=== PATIENT | female | born 1995 | race American Indian/Alaskan Native ===

== ENCOUNTER 2019-08-08 22:15 | Emergency (ER) | payer SELFPAY ==
[2019-08-08 22:19] VITALS: BP 143/82
--- NOTE | 2019-08-08 22:34 | Emergency Department Report ---
- General Chief complaint: Skin/Abscess/Foreign Body Stated complaint: BUMPS ON LEGS Time Seen by Provider: 08/08/19 22:25 Source: patient Mode of arrival: Ambulatory Limitations: No Limitations - History of Present Illness Initial comments: Patient is a 24-year-old female who presents emergency room with complaints of 2 bumps to the left lower leg that began approximately a week ago. She states that they have been increasing in size and she has noticed a small amount of drainage. She states that initially she thought they were hair bumps. She denies any drainage currently. She denies any fever, nausea, vomiting, diarrhea, chills, any other symptoms. She denies any past medical history or allergies to medications. She states her last menstrual cycle was the end of month. - Related Data Previous Rx's Medication Instructions Recorded Last Taken Type Sulfamethoxazole/Trimethoprim 1 each PO BID 7 Days #14 tablet 08/08/19 Unknown Rx [Bactrim DS TAB] Allergies Allergy/AdvReac Type Severity Reaction Status Date / Time orange Allergy Rash Verified 08/08/19 22:19 Abscess Boil HPI - HPI Chief Complaint: Skin/Abscess/Foreign Body Stated Complaint: BUMPS ON LEGS Time Seen by Provider: 08/08/19 22:25 Home Medications: Previous Rx's Medication Instructions Recorded Last Taken Type Sulfamethoxazole/Trimethoprim 1 each PO BID 7 Days #14 tablet 08/08/19 Unknown Rx [Bactrim DS TAB] Allergies/Adverse Reactions: Allergies Allergy/AdvReac Type Severity Reaction Status Date / Time orange Allergy Rash Verified 08/08/19 22:19 ED Review of Systems ROS: Stated complaint: BUMPS ON LEGS Other details as noted in HPI Comment: All other systems reviewed and negative ED Past Medical Hx - Past Medical History Previous Medical History?: No - Surgical History Past Surgical History?: No - Social History Smoking Status: Current Every Day Smoker - Medications Home Medications: Home Medications Medication Instructions Recorded Confirmed Last Taken Type Sulfamethoxazole/Trimethoprim 1 each PO BID 7 Days #14 tablet 08/08/19 Unknown Rx [Bactrim DS TAB] ED Physical Exam - General Limitations: No Limitations General appearance: alert, in no apparent distress - Head Head exam: Present: atraumatic, normocephalic - Eye Eye exam: Present: normal appearance - ENT ENT exam: Present: mucous membranes moist - Neurological Exam Neurological exam: Present: alert, oriented X3 - Psychiatric Psychiatric exam: Present: normal affect, normal mood - Skin Skin exam: Present: warm, dry, other (1 cm and 2 cm area of induration present to the left lateral lower leg, there is small around of surrouding erythema, no central fluctuance, no necrosis, no skin denuding) ED Course Vital Signs 08/08/19 22:18 Temperature 98.1 F Pulse Rate 85 Respiratory 18 Rate Blood Pressure 143/82 O2 Sat by Pulse 100 Oximetry ED Medical Decision Making - Medical Decision Making Patient is a 24-year-old female who presents emergency room with complaints of 2 bumps to the left lower leg that began approximately a week ago. She states that they have been increasing in size and she has noticed a small amount of drainage. She states that initially she thought they were hair bumps. She denies any drainage currently. She denies any fever, nausea, vomiting, diarrhea, chills, any other symptoms. She denies any past medical history or allergies to medications. She states her last menstrual cycle was the end of last month. Vitals are stable. On exam: 1 cm and 2 cm area of induration present to the left lateral lower leg, there is small around of surrouding erythema, no central fluctuance, no necrosis, no skin denuding. No drainable abscess at this time. It appears to be a mild cellulitis. Could be related to insect bite versus folliculitis. pt given prescription for bactrim. advised pt Please take medication as prescribed. Please use warm compresses 3 times a day. Please wash area with soap and water and immediately dry. May use Neosporin on the areas. Follow-up with a primary care doctor in the next 3 days for reexamination. Return to the emergency room for any new or worsening symptoms including but not limited to worsening swelling, worsening redness, fever, chills, vomiting, etc. Critical care attestation.: If time is entered above; I have spent that time in minutes in the direct care of this critically ill patient, excluding procedure time. ED Disposition Clinical Impression: Cellulitis Qualifiers: Site of cellulitis: extremity Site of cellulitis of extremity: lower extremity Laterality: left Qualified Code(s): L03.116 - Cellulitis of left lower limb Disposition: TO HOME OR SELFCARE Is pt being admited?: No Does the pt Need Aspirin: No Condition: Stable Instructions: Cellulitis (ED) Additional Instructions: Please take medication as prescribed. Please use warm compresses 3 times a day. Please wash area with soap and water and immediately dry. May use Neosporin on the areas. Follow-up with a primary care doctor in the next 3 days for reexamination. Return to the emergency room for any new or worsening symptoms including but not limited to worsening swelling, worsening redness, fever, chills, vomiting, etc. Prescriptions: Sulfamethoxazole/Trimethoprim [Bactrim DS TAB] 1 each PO BID 7 Days #14 tablet Referrals: SARAH CROW MD [Staff Physician] - 2-3 Days [facility] [Provider Group] - 2-3 Days [facility] [Outside] - 2-3 Days [facility] [Outside] - 2-3 Days Time of Disposition: 22:33 Print Language: YORUBA
== END 2019-08-08 22:42 | disposition home or self-care (01) ==
LOC: ED 22:15
DX: L03.116 Cellulitis of left lower limb (principal); F17.200 Nicotine dependence, unspecified, uncomplicated; Z79.899 Other long term (current) drug therapy; Z91.018 Allergy to other foods
CPT/HCPCS: 99282

== ENCOUNTER 2019-08-11 10:26 | Emergency (ER) | payer SELFPAY ==
--- NOTE | 2019-08-11 10:52 | Emergency Department Report ---
Chief Complaint: Skin/Abscess/Foreign Body Stated Complaint: LEFT LEG BITES Time Seen by Provider: 08/11/19 10:37 - HPI History of Present Illness: This is a 24-year-old female who returns to the ED for reevaluation of some pain in swelling to the lower leg. 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 Patient states she has been going to work but pain is causing her not to be able to function at work. Patient states she works exacerbates. Patient denies any fever, chills, nausea vomiting, shortness of breath, dizziness lightheadedness or any new symptoms. - ROS Review of Systems: As noted in HPI - Exam Physical Exam: Skin exam: Present: warm, dry, There is an unchanged 1 cm and 2 cm area of induration present to the left lateral lower leg, there is small area of surrounding erythema, no central fluctuance, no necrosis, no skin denuding) MSE screening note: Focused history and physical exam performed. Due to findings the following was ordered: ED Medical Decision Making - Medical Decision Making This 24-year-old female who returns for insect bite/cellulitis to the lower leg. I discussed with the patient clam picker a prescription of Bactrim and take as prescribed. I discussed with patient to take Motrin [id number] for pain and continue to help apply warm compresses as she was instructed. I discussed with patient that if symptoms do get worse before getting better if she is not taking the antibiotics as prescribed. Patient understands instructions was a bit combative stating that medicine might not work. I encouraged patient to start taking the medication before making assumptions. I also discussed with patient to make sure she follows up with referrals as given in 2 to 3 days for reassessment. Patient is in no acute distress no respiratory distress. Patient is ambulatory without any problems. ED Disposition for MSE Clinical Impression: Insect bite, Cellulitis Disposition: Z- MED SCREENING EXAM-LEFT Is pt being admited?: No Does the pt Need Aspirin: No Condition: Stable Instructions: Insect Bite or Sting (ED), Cellulitis (ED) Additional Instructions: Follow up with pcp or clinic as refferred Go clam picker your antibiotics and start taking them as prescribed. apply warm compress daily If you have any worsening symptoms or develop new symptoms please return to ED immediately. Referrals: [facility] [Outside] - 3-5 Days [facility] [Outside] - 3-5 Days Forms: Accompanied Note, Work/School Release Form(ED) Time of Disposition: 10:52
[2019-08-11 10:57] VITALS: BP 123/71
== END 2019-08-11 11:11 | disposition left against medical advice (07) ==
LOC: ED 10:26
DX: S80.862A Insect bite (nonvenomous), left lower leg, initial encounter (principal); L03.116 Cellulitis of left lower limb; Z91.018 Allergy to other foods; W57.XXXA Bitten or stung by nonvenomous insect and other nonvenomous arthropods, initial encounter; Y93.89 Activity, other specified; Y92.89 Other specified places as the place of occurrence of the external cause; Y99.8 Other external cause status
CPT/HCPCS: 99282

== ENCOUNTER 2020-07-22 09:25 | Emergency (ER) | payer SELFPAY ==
[2020-07-22 09:37] VITALS: BP 121/72
[2020-07-22] MEDS ORDERED: KETOROLAC 30 MG/1 ML INJ IM ONE (10:02)
--- NOTE | 2020-07-22 10:06 | Emergency Department Report ---
Upper Extremity - HPI Chief Complaint: Extremity Injury, Upper Stated Complaint: LT ARM PAIN Time Seen by Provider: 07/22/20 10:02 Occurred When: 2 Days Mechanism: Other Severity: severe (Overuse) Symptoms: Yes Pain with Movement, Yes Limited Range of Movement, No Deformity, No Numbness, No Weakness, No Swelling, No Bruising/Ecchymosis, No Laceration or Abrasion Other History: 24-year-old -Mold[place] female presents to the emergency room complaining of left elbow pain that started on Wednesday. Patient states that she works for [employer] and has been lifting heavy boxes. Patient states that the pain is gotten worse where she is not able to fully extend her elbow. Patient is taking nothing for pain. Patient denies any direct injury. Last menstrual period was 07/15/2020. ED Review of Systems ROS: Stated complaint: LT ARM PAIN Other details as noted in HPI Comment: All other systems reviewed and negative ED Past Medical Hx - Past Medical History Previous Medical History?: No - Surgical History Past Surgical History?: No - Social History Smoking Status: Current Every Day Smoker Substance Use Type: Alcohol, Marijuana - Medications Home Medications: Home Medications Medication Instructions Recorded Confirmed Last Taken Type Sulfamethoxazole/Trimethoprim 1 each PO BID 7 Days #14 tablet 08/08/19 Unknown Rx [Bactrim DS TAB] Ibuprofen [Motrin 600 MG tab] 600 mg PO Q8H PRN #21 tablet 07/22/20 Unknown Rx Upper Extremity Exam - Exam General: Vital signs noted. No distress. Alert and acting appropriately. Shoulder Exam: Yes Normal Range of Motion in Shoulder, No Shoulder Tenderness, No Clavicle Tenderness, No Shoulder Deformity, No AC Joint Tenderness Arm Exam: No Arm/Humerus Tenderness, No Arm Deformity Elbow: Yes Elbow Tenderness, Yes Normal Range of Motion in Elbow, No Elbow Deformity Forearm: No Forearm Tenderness, No Forearm Deformity, No Pain with Pronation, No Pain with Supination Wrist: Yes Normal ROM in Wrist, No Wrist Tenderness, No Wrist Deformity, No Snuffbox Tenderness, No Pain with Axial Thumb Compression Hand: Yes Normal ROM in Digit(s), No Hand Tenderness, No Hand Deformity, No Digit Tenderness, No Digit(s) Deformity, No Tendon Dysfunction CMS Exam: No Broken Skin, No Normal Distal Pulses, No Normal Capillary Refill, No Normal Distal Sensation ED Course Vital Signs 07/22/20 09:36 Temperature 97.8 F Pulse Rate 51 L Respiratory 20 Rate Blood Pressure 121/72 O2 Sat by Pulse 100 Oximetry ED Medical Decision Making - Medical Decision Making 24-year-old -[place] female presents to the emergency room complaining of left elbow pain that started on Wednesday. 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 Patient states that the pain is gotten worse where she is not able to fully extend her elbow. Patient is taking nothing for pain. Patient denies any direct injury. Last menstrual period was 07/15/2020. Discussed with patient this is most likely a elbow tendinitis from overuse of lifting heavy objects. Patient be given a Toradol injection. Recommend for her to find a elbow brace that she can get from [employer] or [employer]. Take ibuprofen 600 mg every 8 hours as needed. Follow-up with your primary care provider. Critical care attestation.: If time is entered above; I have spent that time in minutes in the direct care of this critically ill patient, excluding procedure time. ED Disposition Clinical Impression: Left elbow tendonitis Disposition: DC- TO HOME OR SELFCARE Is pt being admited?: No Does the pt Need Aspirin: No Condition: Stable Instructions: Tennis Elbow, [id number] Additional Instructions: Please take Tylenol or ibuprofen for pain management. Get UA elbow brace that she can find at [employer] to wear when you are at work. Ice to your elbow. Follow-up with your primary care provider. Prescriptions: Ibuprofen [Motrin 600 MG tab] 600 mg PO Q8H PRN #21 tablet PRN Reason: Pain Referrals: PRIMARY CARE [Primary Care Provider] - 3-5 Days [facility] [Provider Group] - 3-5 Days Forms: Work/School Release Form(ED)
== END 2020-07-22 10:35 | disposition home or self-care (01) ==
LOC: ED 09:25
DX: M77.8 Other enthesopathies, not elsewhere classified (principal); F17.200 Nicotine dependence, unspecified, uncomplicated; F12.90 Cannabis use, unspecified, uncomplicated; Z91.018 Allergy to other foods; Z79.899 Other long term (current) drug therapy
CPT/HCPCS: 96372; 99282; J1885

== ENCOUNTER 2020-10-04 10:24 | Emergency (ER) | payer SELFPAY ==
[2020-10-04] MEDS ORDERED: ASPIRIN 325 MG TAB PO ONE ×2 (10:33→13:00)
[2020-10-04] MEDS ORDERED: IPRATROPIUM/ALBUTEROL SULFATE 3 ML AMPUL.NEB IH ONE (10:33)
[2020-10-04] MEDS ORDERED: predniSONE 50 MG TAB PO ONE ×2 (10:33→13:00)
--- NOTE | 2020-10-04 10:35 | Event Note ---
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 Patient states that the dizziness has since resolved but the chest pain has been constant and persistent, worse with inspiration. Patient denies cough, shortness of breath, headache, nausea and vomiting, abdominal pain, diaphoresis, numbness and tingling or weakness of upper and lower extremities bilaterally, fever or chills, sore throat, change in vision or syncope. This initial assessment/diagnostic orders/clinical plan/treatment(s) is/are subject to change based on patients health status, clinical progression and re- assessment by fellow clinical providers in the ED. Further treatment and workup at subsequent clinical providers discretion. Patient/guardian urged not to elope from the ED as their condition may be serious if not clinically assessed and managed. Initial orders include: CBC, EKG, CMP, troponin, chest x-ray
[2020-10-04 12:25] LABS: Hemoglobin 12.7 gm/dl (10.1-14.3); Mean Corpuscular HGB Conc 33 % (30-34); Mean Corpuscular Volume 95 fl (79-97); Platelet Count 211 K/mm3 (140-440); Red Blood Count 4.11 M/mm3 (3.65-5.03); Red Cell Distribution Width 14.7 % (13.2-15.2)
[2020-10-04 12:30] LABS: Basophils % (Auto) 0.7 % (0.0-1.8); Eosinophils # (Auto) 0.1 K/mm3 (0.0-0.4); Eosinophils % (Auto) 2.4 % (0.0-4.3); Lymphocytes # (Auto) 2.6 K/mm3 (1.2-5.4); Lymphocytes % (Auto) 49.9 % (13.4-35.0); Monocytes # (Auto) 0.5 K/mm3 (0.0-0.8); Monocytes % (Auto) 9.6 % (0.0-7.3)
[2020-10-04 12:31] LABS: Alanine Aminotransferase 19 units/L (7-56); Albumin 4.2 g/dL (3.9-5); Blood Urea Nitrogen 9 mg/dL (7-17); Calcium 9.5 mg/dL (8.4-10.2); Hemolysis Index 8
[2020-10-04 12:37] LABS: BUN/Creatinine Ratio 15
--- NOTE | 2020-10-04 13:04 | Emergency Department Report ---
ED Chest Pain HPI - General Chief Complaint: Chest Pain Stated Complaint: HEART MUR/CHEST PAIN Time Seen by Provider: 10/04/20 12:28 Source: patient Mode of arrival: Ambulatory Limitations: No Limitations - History of Present Illness Initial Comments: 25-year-old female who reports a past medical history of a heart murmur presents to the ER today with complaints of chest pain and dizziness. 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 She states that she kept on taking breaks while she was unloading the trucks due to feeling dizzy but when she found the finish unloading the truck and was taking another break she started having pain in the substernal chest area which was constant but wax and wane. She states that the pain was a little worse when she took a deep breath and also on palpation of her chest. Reports associated shortness of breath and she states that she was wheezing. She denies any coughing, URI symptoms, fever, chills, nausea, vomiting, abdominal pain, calf pain or swelling. She denies any syncope or near syncopal episodes. patient states on arrival to the ER her chest pain was 8 out of 10. 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 She is currently receiving a nebulizer treatment which was ordered in triage and she states that since receiving the treatment her pain has decreased to 6 out of 10. According to triage provider she was wheezing. She states that she smokes Black and mild but otherwise denies tobacco use and she denies any history of lung disease such as asthma, COPD or sarcoidosis or any other lung disease. Other than her heart murmur she denies any history of coronary artery disease and she denies any history of PE or DVT. MD Complaint: chest pain, other (Dizzy lightheaded) -: Sudden - Related Data Previous Rx's Medication Instructions Recorded Last Taken Type Acetaminophen [Acetaminophen 8 650 mg PO Q6HR PRN #30 tablet.er 10/04/20 Unknown Rx Hour] Albuterol Mdi (or & Nicu Only) 2 puff IH Q4HR PRN #8.5 gram 10/04/20 Unknown Rx [ProAir HFA Inhaler] Allergies Allergy/AdvReac Type Severity Reaction Status Date / Time orange Allergy Rash Verified 07/22/20 09:33 Heart Score - HEART Score History: Slightly suspicious EKG: Normal Age: < 45 Risk factors: No known risk factors Troponin: < normal limit HEART Score: 0 - EKG Read Time Time EKG Completed: 10:46 EKG Read Time: 10:51 ED Review of Systems ROS: Stated complaint: HEART MUR/CHEST PAIN Other details as noted in HPI Comment: All other systems reviewed and negative Constitutional: denies: chills, fever Eyes: denies: eye pain, eye discharge, vision change ENT: denies: ear pain, throat pain, dental pain, hearing loss, epistaxis, congestion Respiratory: shortness of breath, wheezing. denies: cough Cardiovascular: chest pain Gastrointestinal: denies: abdominal pain, nausea, diarrhea, constipation, hematemesis, hematochezia Genitourinary: denies: urgency, dysuria, frequency, hematuria, discharge, abnormal menses, dyspareunia Musculoskeletal: denies: back pain, joint swelling, arthralgia Skin: denies: rash, lesions, change in color, change in hair/nails, pruritus Neurological: denies: headache, weakness, numbness, paresthesias, confusion, abnormal gait, vertigo Psychiatric: denies: anxiety, depression, auditory hallucinations, visual hallucinations, homicidal thoughts, suicidal thoughts Hematological/Lymphatic: denies: easy bleeding, easy bruising, swollen glands ED Past Medical Hx - Past Medical History Previous Medical History?: No - Surgical History Past Surgical History?: No - Social History Smoking Status: Heavy Tobacco Smoker Substance Use Type: None - Medications Home Medications: Home Medications Medication Instructions Recorded Confirmed Last Taken Type Acetaminophen [Acetaminophen 8 650 mg PO Q6HR PRN #30 tablet.er 10/04/20 Unknown Rx Hour] Albuterol Mdi (or & Nicu Only) 2 puff IH Q4HR PRN #8.5 gram 10/04/20 Unknown Rx [ProAir HFA Inhaler] ED Physical Exam - General Limitations: No Limitations ED Course Vital Signs 10/04/20 10/04/20 10/04/20 10:31 12:20 13:21 Temperature 98.2 F 98.4 F Pulse Rate 57 L 68 Pulse Rate [ 63 Anterior Bilateral Throughout] Respiratory 20 16 Rate Respiratory 18 Rate [Anterior Bilateral Throughout] Blood Pressure 124/61 Blood Pressure 109/69 [Right] O2 Sat by Pulse 100 100 Oximetry DAMON score - Damon Score Age > 65: (0) No Aspirin use within the Past 7 Days: (0) No 3 or more CAD Risk Factors: (0) No 2 or more Angina events in past 24 hrs: (0) No Known CAD with more than 50% Stenosis: (0) No Elevated Cardiac Markers: (0) No ST Deviation Greater than 0.5mm: (0) No DAMON Score: 0 ED Medical Decision Making - Lab Data Result diagrams: 10/04/20 11:36 10/04/20 11:36 - EKG Data EKG shows normal: sinus rhythm Rate: bradycardia (46) - Radiology Data Radiology results: report reviewed Preliminary downtime x-ray report: No acute findings per radiologist - Medical Decision Making Patient states that she is feeling better. She states that as long she does not move the pain is not as bad. Patient is sitting up on the edge of the bed, she is not currently in any acute pain or respiratory distress. She is not toxic or ill-appearing. She appears well-hydrated. She is neurologically intact. Her vital signs are stable. She is not orthostatic. EKG showed sinus bradycardia with a heart rate of 46 but otherwise no STEMI or any other acute ischemic changes. Labs reviewed and unremarkable including negative troponin and negative hCG. the history, exam, diagnostic testing and current condition do not suggest that this patient is having acute myocardial infarction, significant arrhythmia, unstable angina, esophageal perforation, pulmonary embolism (PERC negative), aortic dissection, pneumothorax, severe pneumonia, intracranial abnormality, sepsis or other significant pathology that would warrant further testing, continued ED treatment, admission or cardiology or other specialist consultation at this time. Patient symptoms could be related to heat exhaustion with associated costochondritis as she did have some reproducible chest wall tenderness. At the time of my exam patient chest was clear to auscultation but given that she was wheezing on arrival per triage note provider and she reported some improvement after the nebulizer treatment we will also discharged home with an albuterol inhaler. She will prescribe Tylenol for pain, lots of fluids rest and light duty at work for couple days (per discussion with Dr Carmona). Patient expressed understanding of instuctions and agreed with plan. Pt stable at time of d/c Critical care attestation.: If time is entered above; I have spent that time in minutes in the direct care of this critically ill patient, excluding procedure time. ED Disposition Clinical Impression: Atypical chest pain, Heat exhaustion, Costochondritis, acute, Bronchitis Disposition: DC-01 TO HOME OR SELFCARE Is pt being admited?: No Does the pt Need Aspirin: No Condition: Stable Instructions: Costochondritis, [id number], Heat Exhaustion, Nonspecific Chest Pain, Adult, Acute Bronchitis, Adult, Chronic Bronchitis (ED) Additional Instructions: Take the tylenol as prescribed to help with pain. Use the albuterol MDI as prescribed for any wheezing. I recommend rest and lots of fluids for the next 2- 3 days. I also recommend follow up with cardiology which is listed on your discharge instructions. Try to make an appointment for next week. Return to ED if symptoms changes or worsens in anyway. 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
[2020-10-04] MEDS ORDERED: ACETAMINOPHEN 325 MG TAB PO ONE (14:23)
[2020-10-04 16:21] VITALS: BP 115/66
--- NOTE | 2020-10-04 18:21 | XRay Report ---
CHEST 2 VIEWS INDICATION / CLINICAL INFORMATION: CHEST PAIN. COMPARISON: None available. FINDINGS: SUPPORT DEVICES: None. HEART / MEDIASTINUM: No significant abnormality. LUNGS / PLEURA: No significant pulmonary abnormality. No significant pleural effusion. No pneumothora x. ADDITIONAL FINDINGS: No significant additional findings. IMPRESSION: 1. No acute abnormality of the chest. Signer Name: Hang Curran MD Signed: 10/04/2020 6:17 PM Workstation Name: [id number]
--- NOTE | 2020-10-10 11:17 | Electrocardiograph Report ---
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
== END 2020-10-04 16:22 | disposition home or self-care (01) ==
LOC: ED 10:24
DX: T67.5XXA Heat exhaustion, unspecified, initial encounter (principal); M94.0 Chondrocostal junction syndrome [Tietze]; J20.9 Acute bronchitis, unspecified; F17.200 Nicotine dependence, unspecified, uncomplicated; Z91.018 Allergy to other foods; Z79.899 Other long term (current) drug therapy; X58.XXXA Exposure to other specified factors, initial encounter; Y93.89 Activity, other specified; Y92.89 Other specified places as the place of occurrence of the external cause; Y99.8 Other external cause status
CPT/HCPCS: 36415; 71046; 80053; 84484; 84703; 85025; 93005; 94640; 99284; J7512; 94644